=== PATIENT | male | born 1960 | race Caucasian/White ===

== ENCOUNTER 2018-05-06 21:17 | Emergency (ER) | payer SELFPAY ==
--- NOTE | ~2018-05-06 | EKG ---
[place], [place] ELECTROCARDIOGRAM REPORT NAME: JEFRY ABARCA UNIT #: [id number] ROOM: DOCTOR: EPIPHANY DRAFT REPORT BIRTHDATE: [birth year] [facility] Test Date: 2018-05-06 Test Time: 21:47:52 Pat Name: JEFRY ABARCA Department: ER Room: 2 Gender: M Night Clerk: Anushka Tracy : 1960 Requested By: MIHAI COTA Order Number: [id number] Reading MD: Amy Bedoya MD Measurements Intervals [place] Rate: 109 P: 57 CO: 167 QRS: 60 QRSD: 90 T: 44 QT: 352 QTc: 475 Interpretive Statements Sinus tachycardia Borderline low voltage, extremity leads Electronically Signed On 05-10-2018 12:05:23 PDT by Amy Bedoya MD CM:EKGRPT:ELECTROCARDIOGRAM REPORT [id number] MIHAI BAXTER DRAFT REPORT MIHAI COTA DO
[~2018-05-06 21:17] MED LIST: ATARAX25 MG PO; MEDROL DOSEPAK4 MG PO; NKHM; PERCOCET 325 MG1 TA3 PO; TAGAMET300 MG PO; VICODIN 5/500 505 MG PO
[2018-05-06 21:46] LABS: BASO # 0.1 10*3/uL (0.0-0.1); BASO % 0.8 % (0.0-1.0); EOS # 0.2 10*3/uL (0.0-0.4); EOS % 2.8 % (1.0-4.0); HEMATOCRIT 49.4 % (42.0-52.0); HEMOGLOBIN 16.5 g/dl (14.0-18.0); LYMPH # 2.8 10*3/uL (1.3-4.4); LYMPH % 32.2 % (27.0-41.0); MEAN CELL VOLUME 91.7 fl (80.0-94.0); MEAN CORPUSCULAR HGB 30.6 pg (27.0-31.0); MEAN CORPUSCULAR HGB CONC 33.4 g/dl (33.0-37.0); MEAN PLATELET VOLUME 9.3 fl (9.6-12.3); MONO # 0.9 10*3/uL (0.1-1.0); NEUT # 4.6 10*3/uL (2.3-7.9); NEUT % 54.1 % (47.0-73.0); PLATELET COUNT AUTOMATED 252 10*3/uL (130-400); RED BLOOD COUNT 5.39 10*6/uL (4.50-5.90); RED CELL DISTRI WIDTH 13.1 % (0-14.5); WHITE BLOOD COUNT 8.5 10*3/uL (4.8-10.8)
[2018-05-06 22:01] LABS: ALBUMIN 3.5 gm/dl (3.1-4.5); ALKALINE PHOSPHATASE 63 U/L (45-117); BUN 4 mg/dl (7-24); CHLORIDE 103 mmol/L (98-107); POTASSIUM 3.6 mmol/L (3.5-5.1); SGOT/AST 38 IU/L (3-35); SGPT/ALT 33 U/L (12-78); SODIUM 138 mmol/L (136-145); TOTAL PROTEIN 8.8 gm/dL (6.4-8.2)
[2018-05-06 22:02] LABS: ACETAMINOPHEN (TYLENOL) < 2.0 ug/ml (10-30); TROPONIN I < 0.015 ng/ml (<0.045)
[2018-05-06 22:15] LABS: ACT PARTIAL THROMBO TIME 23.4 SECONDS (20.8-31.5)
[2018-05-06 22:25] LABS: ABG BASE EXCESS -2.9 mmol/L (-2.0-2.0); ABG HCO3 22.1 mmol/l (22-26); ABG O2 SATURATION 99.3 % (95-97); ARTERIAL BLOOD GAS PH 7.35 (7.35-7.45)
== END 2018-05-06 22:57 | disposition short-term general hospital (02) ==
LOC: ED 21:17
PROVIDERS: Student in an Organized Health Care Education/Training Program
DX: T54.3X1A Toxic effect of corrosive alkalis and alkali-like substances, accidental (unintentional), initial encounter (principal); T28.6XXA Corrosion of esophagus, initial encounter; Y93.89 Activity, other specified; Y92.89 Other specified places as the place of occurrence of the external cause; Y99.8 Other external cause status

== ENCOUNTER 2018-06-26 23:54 | Emergency (ER) | payer OTHER ==
[~2018-06-26] VITALS: Ht 185.4 cm; Wt 90.7 kg
--- NOTE | ~2018-06-26 | EKG ---
[place], [place] ELECTROCARDIOGRAM REPORT NAME: JEFRY ABARCA UNIT #: [id number] ROOM: DOCTOR: EPIPHANY DRAFT REPORT BIRTHDATE: [birth year] [facility] Test Date: 2018-06-27 Test Time: 00:27:50 Pat Name: JEFRY ABARCA Department: er Room: 3 Gender: M Leacher: Yosef Barrientos : 1960 Requested By: YASHIRA THOMPSON Order Number: [id number] Reading MD: Heladio Rand MD Measurements Intervals [place] Rate: 93 P: 20 MD: 179 QRS: 48 QRSD: 87 T: 33 QT: 361 QTc: 449 Interpretive Statements Sinus rhythm Atrial premature complexes Baseline wander in lead(s) V1 Compared to ECG 05/06/2018 21:47:52 Atrial premature complex(es) now present Sinus tachycardia no longer present Electronically Signed On 06-27-2018 12:27:30 PST by Heladio Rand MD CM:EKGRPT:ELECTROCARDIOGRAM REPORT [id number] YASHIRA THOMPSON MD EPIPHANY DRAFT REPORT YASHIRA THOMPSON MD
[2018-06-27 00:34] LABS: BASO % 0.9 % (0.0-1.0); EOS # 0.1 10*3/uL (0.0-0.4); EOS % 2.3 % (1.0-4.0); HEMATOCRIT 44.7 % (42.0-52.0); HEMOGLOBIN 14.8 g/dl (14.0-18.0); LYMPH # 1.8 10*3/uL (1.3-4.4); LYMPH % 40.3 % (27.0-41.0); MEAN CELL VOLUME 93.5 fl (80.0-94.0); MEAN CORPUSCULAR HGB CONC 33.1 g/dl (33.0-37.0); MEAN PLATELET VOLUME 9.5 fl (9.6-12.3); MONO # 0.7 10*3/uL (0.1-1.0); MONO % 15.4 % (3.0-9.0); NEUT # 1.8 10*3/uL (2.3-7.9); NEUT % 41.1 % (47.0-73.0); PLATELET COUNT AUTOMATED 169 10*3/uL (130-400); RED BLOOD COUNT 4.78 10*6/uL (4.50-5.90); RED CELL DISTRI WIDTH 14.3 % (0-14.5); WHITE BLOOD COUNT 4.3 10*3/uL (4.8-10.8)
[2018-06-27 00:50] LABS: ACETAMINOPHEN (TYLENOL) < 5.0 ug/ml (10-30); ALKALINE PHOSPHATASE 76 U/L (45-117); BUN 2 mg/dl (7-24); CHLORIDE 103 mmol/L (98-107); CREATININE 0.85 mg/dL (0.70-1.30); POTASSIUM 3.8 mmol/L (3.5-5.1); SGOT/AST 136 IU/L (3-35); SGPT/ALT 84 U/L (12-78); SODIUM 136 mmol/L (136-145); TOTAL PROTEIN 7.8 gm/dL (6.4-8.2)
== END 2018-06-27 02:06 | disposition left against medical advice (07) ==
LOC: ED 23:54
PROVIDERS: Emergency Medicine Emergency Medical Services
DX: F10.129 Alcohol abuse with intoxication, unspecified (principal); M25.561 Pain in right knee; M25.572 Pain in left ankle and joints of left foot; M54.2 Cervicalgia; M54.5 Low back pain; M25.559 Pain in unspecified hip; H55.00 Unspecified nystagmus; R00.0 Tachycardia, unspecified; I10 Essential (primary) hypertension; Y90.9 Presence of alcohol in blood, level not specified